=== PATIENT | male | born 1955 | race Caucasian/White ===

== ENCOUNTER → 2017-12-28 10:16 | Outpatient (CLI) | payer MEDICAID, SELFPAY ==
[2017-12-28 10:53] LABS: Hemoglobin 13.9 g/dl (13.0-16.5); Mean Corp Hgb Conc 33.1 g/gl (32-36); Mean Corpuscular Hgb 32.7 pg (27.0-32.0); Mean Corpuscular Volume 98.8 fL (80-94); Mean Platelet Vol. 11.1 fl (6.2-12.0); Platelet Count 219 K/mm3 (150-450); RBC Distribution Width CV 12.9 % (11.6-14.6); RBC Distribution Width SD 46.7 fl (35.1-43.9); Red Blood Count 4.25 M/mm3 (4.6-6.2); White Blood Count 8.2 K/mm3 (4.4-11.0)
[2017-12-28 10:54] LABS: Scan Indicated on CBC? Y/N NO
[2017-12-28 11:09] LABS: International Normalized Ratio 1.3; Partial Thromboplast Time 39.4 Seconds (24.1-36.2)
--- NOTE | 2017-12-28 11:17 | RAD_ITS ---
STUDY: X-RAY CHEST REASON FOR EXAM: Male, 62 years old. Shortness of breath TECHNIQUE: Frontal and lateral views of the chest were obtained. COMPARISON: None. FINDINGS: The lungs are hyperinflated. There are coarse markings in both lung bases. There are no focal airspace opacities. There is no demonstrated pleural abnormality. The cardiac silhouette is normal in size. The mediastinum and hilar regions are unremarkable. Normal visualized pulmonary arteries. There is atherosclerotic calcification of the thoracic aorta. There are diffuse degenerative changes of the visualized spine. There are old rib fractures on the left side. There is no demonstrated abnormality of the visualized upper abdomen. RAD/Chest PA and Lateral IMPRESSION: No acute cardiopulmonary abnormalities. Hyperinflation suggests COPD. There are mild chronic changes in the lung bases. Electronically Signed: Caterina Santamaria MD at 18:52 EDT Tel Direct: [phone], Service support ,
[2017-12-28 11:19] LABS: Anion Gap 6 (5-15); BUN 58 mg/dL (7-18); BUN/Creat Ratio 24.9 RATIO (10-20); Calcium,Total 9.1 mg/dL (8.5-10.1); Chloride 104 mmol/L (98-107); Creatinine, Serum 2.33 mg/dL (0.70-1.30); EST Glomerular Filtration Rate 30 mL/min (>60); Est Glom Filt Rate - Afr Amer 36 mL/min (>60); Glucose 81 mg/dL (74-106); Potassium 3.8 mmol/L (3.5-5.1); Sodium Level 139 mmol/L (136-145)
== END ==
PROVIDERS: Family Provider Internal Medicine; PCP Internal Medicine; Visit Provider Internal Medicine Cardiovascular Disease
DX: I10 Essential (primary) hypertension (principal); I48.0 Paroxysmal atrial fibrillation; R06.02 Shortness of breath; R94.39 Abnormal result of other cardiovascular function study
CPT/HCPCS: 36415; 71046; 80048; 85027; 85610; 85730

== ENCOUNTER 2018-01-04 08:01 | Day surgery (SDC) | payer MEDICAID, SELFPAY ==
[2018-01-03 11:48] VITALS: BMI 28.2
--- NOTE | 2018-01-04 18:03 | CL.D_ITS ---
Patient Name: DEBBY HOLM Study Date: 01/04/2018 Performing: Omi Booth MD Ht: 74 inches 188 cm : 1955 Wt: 220.8 lbs 100 kg Age: 62 Gender: male BSA: 2.27 PROCEDURE(S) PERFORMED [id number] CLINICAL PROFILE AND INDICATIONS Indications: Suspected CAD Heart Failure: None Stress/Imaging Stress Test w/SPECT MPI: Yes Result: PositiveStress Test with SPECT MPI: Positive Angina Classification Anginal Classification w/in 2 Weeks: No symptoms CONCLUSIONS Elevated Left Ventricular End Diastolic Pressure [place] Multivessel CAD OM1: ostial occlusion: fills from right to left collateral flow RECOMMENDATIONS Medical therapy DESCRIPTION OF PROCEDURE The patient arrived to the procedure lab. The risks and benefits of the procedure as well as a full d escription of our services here and current unavailability of surgical backup were fully explained to the patient and/or their significant other prior to the catheterization. The Timeout was completed, verifying the correct patient and procedure. The patient's procedural site was prepped and draped in the usual fashion. Local anesthetic was given subcutaneously to right radial region with Lidocaine 2% . Using a modified Seldinger technique, arterial access was obtained via the right radial artery, a 6 Fr sheath was inserted. Venous access was obtained via the right radial vein, a 6Fr sheath was insert ed. Left Coronary Artery selective angiography was performed in multiple views using a 5 Fr. 4.0 Tige r catheter. Right Coronary Artery selective angiography was then performed in multiple views using a 5 Fr. 4.0 Eckert catheter. LV to AO pullback pressures were then recorded.The venous sheath was then p ulled and manual compression applied until hemostasis achieved. The arterial sheath was pulled and a TR Band was applied for hemostasis CORONARY ANGIOGRAPHY DOMINANCE: Right Dominant LEFT HEART ASSESSMENT Left Ventricular Ejection Fraction: Not assessed Elevated Left Ventricular End Diastolic Pressure LVEDP: 20 mmHg LEFT MAIN: Mild calcification, Distal: 10-25 % Stenosis LEFT ANTERIOR DECENDING ARTERY: Mild luminal irregularities PROX LAD: Moderate calcification MID LAD: Moderate calcification DIAGONAL 1: Proximal - Mild calcification, Proximal - Mild luminal irregularities CIRCUMFLEX ARTERY: PROX CIRC: Mild calcification MID CIRC: 25 % Stenosis OM 1: Ostial - is occluded RIGHT CORONARY ARTERY: Mild luminal irregularities OSTIAL RCA: 25 % Stenosis PROX RCA: Mild calcification MID RCA: Mild calcification RT PDA: Mid - 25 % Stenosis COLLATERAL FLOW: Collateral flow from Right to Left COMPLICATIONS No Complications PROCEDURE MEDICATIONS Fentanyl 50 mcg IV Versed 1 mg IV Fentanyl 50 mcg IV Versed 1 mg IV Oxygen: 2 L/min via nasal cannula Heparin diluted in 23cc Heparinized saline. Patient given 10cc IA of this solution. 01/04/2018 10:04: 30 Verapamil 2.5mg, Ntg 100mcgs, 2000 units of Heparin diluted in 23cc Heparinized saline. Patient give n 10cc IA of this solution. 01/04/2018 10:04:30 SUMMARY OF HEMODYNAMIC DATA Time AIR REST ECG 08:23:01 AO 132/80 (97) SA 10:05:56 LV 161/20, 36 10:23:24 LV 152/24, 40 10:23:32 LVp 168/23, 42 10:23:40 AOp 171/96 (124) 10:23:45 Signed By Omi Booth MD On 01/04/2018 18:03:12 Omi Booth MD
== END 2018-01-04 14:30 | disposition home or self-care (01) ==
LOC: CLSP 08:01
PROVIDERS: Family Provider Internal Medicine; PCP Internal Medicine; Visit Provider Internal Medicine Cardiovascular Disease
DX: I48.2 Chronic atrial fibrillation (principal); R94.39 Abnormal result of other cardiovascular function study; R06.02 Shortness of breath; R06.83 Snoring; R06.81 Apnea, not elsewhere classified; Z79.899 Other long term (current) drug therapy; Z79.02 Long term (current) use of antithrombotics/antiplatelets; Z79.82 Long term (current) use of aspirin; I10 Essential (primary) hypertension; F01.50 Vascular dementia, unspecified severity, without behavioral disturbance, psychotic disturbance, mood disturbance, and anxiety; G89.29 Other chronic pain; M54.9 Dorsalgia, unspecified; F17.210 Nicotine dependence, cigarettes, uncomplicated
CPT/HCPCS: 93454; 99152; 99153; J7040; Q9967; C1769; C1894

== ENCOUNTER → 2018-01-10 13:58 | Outpatient (CLI) | payer MEDICAID, SELFPAY ==
--- NOTE | 2018-01-10 14:00 | ECHOD_ITS ---
Reason For Study: ATRIAL FIB-FLUTTER Procedure This was a 2D Doppler, Color Flow transthoracic echocardiogram. The exam was of poor technical quality due to body habitus. The study was technically difficult. Exam performed in department. Left Ventricle Normal LV size. Mild segmental systolic dysfunction (see wall motion). The estimated ejection fraction is 50 %. Unable to assess diastolic dysfunction. Mid-Lateral : Mildly hypokinetic. Mid- Posterior: Mildly hypokinetic. Mid-Inferior: Mildly hypokinetic. Inferior [place] : Mildly hypokinetic. Right Ventricle Normal RV size. Normal systolic function. Atria Normal left atrium. Normal right atrium. No doppler evidence for ASD. Mitral Valve There is no mitral annular calcification. Normal mitral valve. Mild (1+) mitral valve insufficiency. Tricuspid Valve Normal tricuspid valve. Trivial tricuspid valve insufficiency. Right ventricular systolic pressure estimated to be 41 mmHg. Aortic Valve Trisinus/trileaflet aortic valve. Mild focal aortic valve thickening. Pulmonic Valve The pulmonic valve is not well visualized. Great Vessels Normal sized aortic root. Pericardium/Pleural No pericardial effusion. MMode/2D Measurements & Calculations LVIDd: 4.4 cm IVSd: 0.97 cm Ao root diam: 3.3 cm LVIDs: 3.3 cm LVPWd: 1.2 cm LA dimension: 3.3 cm RVDd: 3.1 cm FS: 25.2 % LAV(MOD-bp): 60.4 ml EDV(MOD-sp4): 101.8 ml SV(MOD-sp4): 54.2 ml LAV(MOD-bp) Indexed: 27.2 ml/m2 ESV(MOD-sp4): 47.6 ml LAV(MOD-sp2): 71.3 ml EF(MOD-sp4): 53.3 % LAV(MOD-sp4): 47.5 ml LA A4 area: 18.3 cm2 RA A4 area: 16.0 cm2 Doppler Measurements & Calculations MV E max gasper: 113.3 cm/sec Ao V2 max: 118.9 cm/sec LV V1 max: 74.4 cm/sec Ao max P.7 mmHg LV V1 max P.2 mmHg PA V2 max: 90.3 cm/sec TR max gasper: 297.8 cm/sec TR max P.0 mmHg Interpretation Summary The study was technically difficult. Mild segmental systolic dysfunction (see wall motion). The estimated ejection fraction is 50 %. Mild (1+) mitral valve insufficiency. Trivial tricuspid valve insufficiency. Mild focal aortic valve thickening. Right ventricular systolic pressure estimated to be 41 mmHg. Unable to assess diastolic dysfunction. Ordering Physician: Omi Booth Referring Physician: SHAYLEE STEVENS Performed By: Yecenia Cam RDCS
== END ==
PROVIDERS: Family Provider Internal Medicine; PCP Internal Medicine; Visit Provider Internal Medicine Cardiovascular Disease
DX: I48.2 Chronic atrial fibrillation (principal)
CPT/HCPCS: 93306